=== PATIENT | male | born 1980 | race American Indian/Alaskan Native ===

== ENCOUNTER 2017-04-05 13:33 | Emergency (ER) | payer MEDICAID | END 2017-04-05 13:57 | disposition left against medical advice (07) | LOC: ED 13:33 | DX: R11.2 Nausea with vomiting, unspecified (principal); Z53.21 Procedure and treatment not carried out due to patient leaving prior to being seen by health care provider ==

== ENCOUNTER 2017-04-06 12:41 | Emergency (ER) | payer MEDICAID ==
[2017-04-06 12:54] VITALS: BP 154/113
[2017-04-06 13:37] LABS: Basophils % (Auto) 0.7 % (0.0-1.8); Eosinophils % (Auto) 2.3 % (0.0-4.3); Hematocrit 53.4 % (35.5-45.6); Hemoglobin 17.1 gm/dl (11.8-15.2); Mean Corpuscular HGB Conc 32 % (32-34); Mean Corpuscular Hemoglobin 27 pg (28-32); Mean Corpuscular Volume 85 fl (84-94); Platelet Count 267 K/mm3 (140-440); Red Blood Count 6.25 M/mm3 (3.65-5.03); Red Cell Distribution Width 13.9 % (13.2-15.2); White Blood Count 7.3 K/mm3 (4.5-11.0)
[2017-04-06 13:48] LABS: Anion Gap 22 mmol/L; BUN/Creatinine Ratio 12; Blood Urea Nitrogen 14 mg/dL (9-20); Calcium 9.5 mg/dL (8.4-10.2); Carbon Dioxide 24 mmol/L (22-30); Chloride 94.4 mmol/L (98-107); Glucose 126 mg/dL (75-100); Potassium 3.2 mmol/L (3.6-5.0); Sodium 137 mmol/L (137-145)
== END 2017-04-06 19:41 | disposition left against medical advice (07) ==
LOC: ED 12:41
DX: R11.10 Vomiting, unspecified (principal); Z53.21 Procedure and treatment not carried out due to patient leaving prior to being seen by health care provider
CPT/HCPCS: 36415; 80048; 85025

== ENCOUNTER 2017-05-17 06:54 | Emergency (ER) | payer MEDICAID ==
[2017-05-17 07:33] VITALS: BP 139/101
[2017-05-17 07:55] LABS: Basophils # (Auto) 0.1 K/mm3 (0.0-0.1); Eosinophils # (Auto) 0.2 K/mm3 (0.0-0.4); Hematocrit 47.7 % (35.5-45.6); Hemoglobin 15.8 gm/dl (11.8-15.2); Lymphocytes # (Auto) 2.4 K/mm3 (1.2-5.4); Lymphocytes % (Auto) 32.1 % (13.4-35.0); Mean Corpuscular HGB Conc 33 % (32-34); Mean Corpuscular Hemoglobin 29 pg (28-32); Mean Corpuscular Volume 86 fl (84-94); Monocytes # (Auto) 0.7 K/mm3 (0.0-0.8); Monocytes % (Auto) 9.3 % (0.0-7.3); Platelet Count 253 K/mm3 (140-440); Red Blood Count 5.52 M/mm3 (3.65-5.03); Red Cell Distribution Width 13.6 % (13.2-15.2)
[2017-05-17 08:30] LABS: Bilirubin,Urine NEG (Negative); Color,Urine Yellow (Yellow)
[2017-05-17 08:30] LABS: Alanine Aminotransferase 22 units/L (7-56); Albumin 4.3 g/dL (3.9-5); BUN/Creatinine Ratio 11; Blood Urea Nitrogen 11 mg/dL (9-20); Calcium 9.4 mg/dL (8.4-10.2); Hemolysis Index 14
[2017-05-17 08:31] LABS: Blood,Urine NEG (Negative); Mucus,Urine FEW /HPF; Nitrite,Urine NEG (Negative); Protein,Urine <15 mg/dL mg/dL (Negative); WBC,Urine < 1.0 /HPF (0.0-6.0)
== END 2017-05-17 12:00 | disposition left against medical advice (07) ==
LOC: ED 06:54
DX: Z53.21 Procedure and treatment not carried out due to patient leaving prior to being seen by health care provider (principal)
CPT/HCPCS: 36415; 80053; 81001; 85025

== ENCOUNTER 2017-08-04 19:18 | Emergency (ER) | payer MEDICAID ==
[2017-08-04] MEDS ORDERED: MORPHINE IV ONE ×2 (19:43→22:28)
[2017-08-04] MEDS ORDERED: ZOFRAN IV ONE (19:43)
[2017-08-04] MEDS ORDERED: NACL 0.9% 1000 ML 1,000 ML IV ONE ×3 (19:43→22:28)
[2017-08-04 19:51] LABS: Basophils % (Auto) 0.3 % (0.0-1.8); Eosinophils # (Auto) 0.1 K/mm3 (0.0-0.4); Eosinophils % (Auto) 0.6 % (0.0-4.3); Hematocrit 52.2 % (35.5-45.6); Hemoglobin 17.5 gm/dl (11.8-15.2); Lymphocytes # (Auto) 2.4 K/mm3 (1.2-5.4); Lymphocytes % (Auto) 26.7 % (13.4-35.0); Mean Corpuscular HGB Conc 34 % (32-34); Mean Corpuscular Hemoglobin 28 pg (28-32); Mean Corpuscular Volume 84 fl (84-94); Monocytes # (Auto) 1.1 K/mm3 (0.0-0.8); Monocytes % (Auto) 12.9 % (0.0-7.3); Platelet Count 275 K/mm3 (140-440); Red Blood Count 6.24 M/mm3 (3.65-5.03); Red Cell Distribution Width 13.5 % (13.2-15.2)
--- NOTE | 2017-08-04 19:58 | Emergency Department Report ---
ED Abdominal Pain HPI - General Chief Complaint: Abdominal Pain Stated Complaint: ABD PAIN Time Seen by Provider: 08/04/17 19:34 Source: family Mode of arrival: Stretcher Limitations: Other - History of Present Illness Initial Comments: 36-year-old male with a past medical history of hypertension, anxiety, and gastritis to the hospital complaining of abdominal pain 3-4 days. Pain is in the upper part of the abdomen, constant, stabbing in nature. Pain is moderate to severe in intensity with palpation and no alleviating factors. Coffee- ground emesis reported it without gross hematemesis. Patient had one episode of bright red blood per rectum without persistent hematochezia, melena, fever, or dysuria. Patient denies previous abdominal surgeries. Endoscopy in 2013 did not reveal any ulcers as per patient report - Related Data Home Medications Medication Instructions Recorded Confirmed Last Taken ALBUTEROL Inhaler [ProAir HFA 8.5 gm IH PRN PRN 08/27/15 01/11/16 Unknown Inhaler] Albuterol Sulfate [Albuterol 0.63% 0.63 mg IH PRN PRN 08/27/15 01/11/16 Unknown NEBS] Previous Rx's Medication Instructions Recorded Last Taken Type Ondansetron [Zofran Odt] 4 mg PO Q8H PRN #10 tab.rapdis 01/11/16 Unknown Rx HYDROcodone/APAP 5-325 [[place] 1 each PO Q6HR PRN #15 tablet 08/05/17 Unknown Rx 5-325 mg TAB] Nitrofurantoin [place]/M-Cryst 100 mg PO Q12HR #14 capsule 08/05/17 Unknown Rx [Macrobid CAP] Ondansetron [Zofran Odt] 4 mg PO Q8HR PRN #20 tab.rapdis 08/05/17 Unknown Rx Allergies Allergy/AdvReac Type Severity Reaction Status Date / Time Penicillins Allergy Hives Verified 07/25/14 17:11 tramadol AdvReac Unknown Verified 11/05/14 02:04 ED Review of Systems ROS: Stated complaint: ABD PAIN Other details as noted in HPI Comment: All other systems reviewed and negative ED Past Medical Hx - Past Medical History Previous Medical History?: No Hx Hypertension: (denies) Hx Psychiatric Treatment: Yes (ANXIETY) Hx Asthma: Yes Additional medical history: Gastritis - Surgical History Past Surgical History?: No Additional Surgical History: endoscopy- 2013 - Social History Smoking Status: Never Smoker - Medications Home Medications: Home Medications Medication Instructions Recorded Confirmed Last Taken Type ALBUTEROL Inhaler [ProAir HFA 8.5 gm IH PRN PRN 08/27/15 01/11/16 Unknown History Inhaler] Albuterol Sulfate [Albuterol 0.63% 0.63 mg IH PRN PRN 08/27/15 01/11/16 Unknown History NEBS] Ondansetron [Zofran Odt] 4 mg PO Q8H PRN #10 tab.rapdis 01/11/16 Unknown Rx HYDROcodone/APAP 5-325 [[place] 1 each PO Q6HR PRN #15 tablet 08/05/17 Unknown Rx 5-325 mg TAB] Nitrofurantoin [place]/M-Cryst 100 mg PO Q12HR #14 capsule 08/05/17 Unknown Rx [Macrobid CAP] Ondansetron [Zofran Odt] 4 mg PO Q8HR PRN #20 tab.rapdis 08/05/17 Unknown Rx ED Physical Exam - General Limitations: Other - Other Other exam information: General: No limitations, patient is alert in no acute distress Head exam: Atraumatic, normocephalic Eyes exam: Normal appearance, are clear ENT: Moist mucous membrane, normal oropharynx Neck exam: Normal inspection, full range of motion, no meningismus nontender Respiratory exam: Clear to auscultation bilateral, no wheezes, rales, crackles Cardiovascular: Normal rate and rhythm, normal heart sounds Abdomen: Soft, nondistended, generalized tenderness greatest in the epigastric area. Normal bowel sounds. No rebound or guarding Extremity: Full range of motion normal inspection no deformity Back: Normal Inspection, full range of motion, no tenderness Neurologic: Alert, oriented x3, cranial nerves intact, no motor or sensory deficit Psychiatric: normal affect, normal mood Skin: Warm, dry, intact ED Course Vital Signs 08/04/17 08/04/17 08/04/17 19:29 20:05 22:04 Temperature 99.2 F 99 F Pulse Rate 98 H 88 Respiratory 18 18 18 Rate Blood Pressure 159/92 Blood Pressure 153/77 [Left] O2 Sat by Pulse 100 100 Oximetry 08/05/17 00:42 Temperature 98 F Pulse Rate 88 Respiratory 18 Rate Blood Pressure Blood Pressure 114/72 [Left] O2 Sat by Pulse 100 Oximetry ED Medical Decision Making - Lab Data Result diagrams: 08/04/17 19:41 08/04/17 19:41 Lab Results 08/04/17 08/04/17 08/04/17 Range/Units 19:41 19:41 20:33 WBC 8.8 (4.5-11.0) K/mm3 RBC 6.24 H (3.65-5.03) M/mm3 Hgb 17.5 H (11.8-15.2) gm/dl Hct 52.2 H (35.5-45.6) % MCV 84 (84-94) fl MCH 28 (28-32) pg MCHC 34 (32-34) % RDW 13.5 (13.2-15.2) % Plt Count 275 (140-440) K/mm3 Lymph % (Auto) 26.7 (13.4-35.0) % [place] % (Auto) 12.9 H (0.0-7.3) % Eos % (Auto) 0.6 (0.0-4.3) % Baso % (Auto) 0.3 (0.0-1.8) % Lymph # 2.4 (1.2-5.4) K/mm3 [place] # 1.1 H (0.0-0.8) K/mm3 Eos # 0.1 (0.0-0.4) K/mm3 Baso # 0.0 (0.0-0.1) K/mm3 Seg Neutrophils % 59.5 (40.0-70.0) % Seg Neutrophils # 5.3 (1.8-7.7) K/mm3 Sodium 136 L (137-145) mmol/L Potassium 3.4 L (3.6-5.0) mmol/L Chloride 95.9 L (98-107) mmol/L Carbon Dioxide 20 L (22-30) mmol/L Anion Gap 24 mmol/L BUN 13 (9-20) mg/dL Creatinine 1.4 (0.8-1.5) mg/dL Estimated GFR > 60 ml/min BUN/Creatinine Ratio 9 % Glucose 117 H (75-100) mg/dL Calcium 11.3 H (8.4-10.2) mg/dL Total Bilirubin 0.80 (0.1-1.2) mg/dL AST 15 (5-40) units/L ALT 17 (7-56) units/L Alkaline Phosphatase 87 (35-129) units/L Total Creatine Kinase (55-170) units/L Total Protein 8.3 H (6.3-8.2) g/dL Albumin 4.8 (3.9-5) g/dL Albumin/Globulin Ratio 1.4 % Lipase 17 (13-60) units/L Urine Color Nicol (Yellow) Urine Turbidity Clear (Clear) Urine pH 5.0 (5.0-7.0) Ur Specific [place] 1.034 H (1.003-1.030) Urine Protein 100 mg/dl (Negative) mg/dL Urine Glucose (UA) Neg (Negative) mg/dL Urine Ketones 20 (Negative) mg/dL Urine Blood Neg (Negative) Urine Nitrite Neg (Negative) Urine Bilirubin Neg (Negative) Urine Urobilinogen < 2.0 (<2.0) mg/dL Ur Leukocyte Esterase Tr (Negative) Urine WBC (Auto) 8.0 H (0.0-6.0) /HPF Urine RBC (Auto) 2.0 (0.0-6.0) /HPF Urine Bacteria (Auto) 1+ (Negative) /HPF Calcium Oxalate Crystal 1+ Hyaline Casts 14 /LPF Urine Mucus 3+ /HPF Urine Opiates Screen Urine Methadone Screen Ur Barbiturates Screen Ur Phencyclidine Scrn Ur Amphetamines Screen U Benzodiazepines Scrn Urine Cocaine Screen U Marijuana (THC) Screen Drugs of Abuse Note 08/04/17 08/04/17 Range/Units 20:33 23:35 WBC (4.5-11.0) K/mm3 RBC (3.65-5.03) M/mm3 Hgb (11.8-15.2) gm/dl Hct (35.5-45.6) % MCV (84-94) fl MCH (28-32) pg MCHC (32-34) % RDW (13.2-15.2) % Plt Count (140-440) K/mm3 Lymph % (Auto) (13.4-35.0) % [place] % (Auto) (0.0-7.3) % Eos % (Auto) (0.0-4.3) % Baso % (Auto) (0.0-1.8) % Lymph # (1.2-5.4) K/mm3 [place] # (0.0-0.8) K/mm3 Eos # (0.0-0.4) K/mm3 Baso # (0.0-0.1) K/mm3 Seg Neutrophils % (40.0-70.0) % Seg Neutrophils # (1.8-7.7) K/mm3 Sodium (137-145) mmol/L Potassium (3.6-5.0) mmol/L Chloride (98-107) mmol/L Carbon Dioxide (22-30) mmol/L Anion Gap mmol/L BUN (9-20) mg/dL Creatinine (0.8-1.5) mg/dL Estimated GFR ml/min BUN/Creatinine Ratio % Glucose (75-100) mg/dL Calcium (8.4-10.2) mg/dL Total Bilirubin (0.1-1.2) mg/dL AST (5-40) units/L ALT (7-56) units/L Alkaline Phosphatase (35-129) units/L Total Creatine Kinase 97 (55-170) units/L Total Protein (6.3-8.2) g/dL Albumin (3.9-5) g/dL Albumin/Globulin Ratio % Lipase (13-60) units/L Urine Color (Yellow) Urine Turbidity (Clear) Urine pH (5.0-7.0) Ur Specific [place] (1.003-1.030) Urine Protein (Negative) mg/dL Urine Glucose (UA) (Negative) mg/dL Urine Ketones (Negative) mg/dL Urine Blood (Negative) Urine Nitrite (Negative) Urine Bilirubin (Negative) Urine Urobilinogen (<2.0) mg/dL Ur Leukocyte Esterase (Negative) Urine WBC (Auto) (0.0-6.0) /HPF Urine RBC (Auto) (0.0-6.0) /HPF Urine Bacteria (Auto) (Negative) /HPF Calcium Oxalate Crystal Hyaline Casts /LPF Urine Mucus /HPF Urine Opiates Screen Presumptive negative Urine Methadone Screen Presumptive negative Ur Barbiturates Screen Presumptive negative Ur Phencyclidine Scrn Presumptive negative Ur Amphetamines Screen Presumptive positive U Benzodiazepines Scrn Presumptive negative Urine Cocaine Screen Presumptive positive U Marijuana (THC) Screen Presumptive positive Drugs of Abuse Note Disclamer - Radiology Data Radiology results: report reviewed ct abd pelvis IV contrast IMPRESSION: negative. No acute abnormalities seen - Medical Decision Making Patient confronted about UDS findings. He admits to cocaine and marijuana use. He states he is taking [id number] cold medicine that could explain elevated amphetamine level. No signs of rhabdomyolysis. UDS + for infection. Patient does complain of dysuria when asked and will likely be treated for STD. He states that he has hives when he takes penicillin he can still take it. IM Rocephin ordered with Solu-Medrol IV. Patient had Benadryl 50 mg several hours ago. He will be monitored for allergic reaction after medication. He also received azithromycin and cover for chlamydia and Macrobid for UTI. Patient is feeling better with improved pain and no further vomiting. - Differential Diagnosis gastritis, pancreatitis, gastroenteritis, biliary colic Critical Care Time: No Critical care attestation.: If time is entered above; I have spent that time in minutes in the direct care of this critically ill patient, excluding procedure time. ED Disposition Clinical Impression: Gastroenteritis, Cocaine abuse, UTI (urinary tract infection) Disposition: TO HOME OR SELFCARE Is pt being admited?: No Does the pt Need Aspirin: No Condition: Stable Instructions: Gastroenteritis (ED), Urinary Tract Infection in Men (ED), Nonspecific Urethritis in Men (ED), Cocaine Abuse (ED) Additional Instructions: Take the medication as prescribed. Follow with the primary care clinic or the doctor provided. Return if symptoms worsen. Prescriptions: HYDROcodone/APAP 5-325 [[place] 5-325 mg TAB] 1 each PO Q6HR PRN #15 tablet PRN Reason: Pain Nitrofurantoin [place]/M-Cryst [Macrobid CAP] 100 mg PO Q12HR #14 capsule Ondansetron [Zofran Odt] 4 mg PO Q8HR PRN #20 tab.rapdis PRN Reason: Nausea And Vomiting Referrals: MARTHA FOWLER MD [Primary Care Provider] - 3-5 Days [facility] [Provider Group] - 3-5 Days
[2017-08-04 20:04] LABS: Alanine Aminotransferase 17 units/L (7-56); Albumin 4.8 g/dL (3.9-5); BUN/Creatinine Ratio 9; Blood Urea Nitrogen 13 mg/dL (9-20); Calcium 11.3 mg/dL (8.4-10.2); Hemolysis Index 9; Lipase 17 units/L (13-60)
[2017-08-04 21:22] LABS: Benzodiazepines Screen,Urine PRESUMPTIVE NEGATIVE; Methadone Screen,Urine PRESUMPTIVE NEGATIVE; Opiate Screen,Urine PRESUMPTIVE NEGATIVE
[2017-08-04 21:28] LABS: Bacteria,Urine 1+ /HPF (Negative); Bilirubin,Urine NEG (Negative); Blood,Urine NEG (Negative); Calcium Oxalate Crystals,Urine 1+; Color,Urine Amber (Yellow); Hyaline Casts,Urine 14 /LPF; Mucus,Urine 3+ /HPF; Urobilinogen,Urine < 2.0 mg/dL (<2.0)
[2017-08-04 21:41] LABS: Amphetamine Screen,Urine PRESUMPTIVE POSITIVE; Cannabinoid Screen,Urine PRESUMPTIVE POSITIVE; Cocaine Screen,Urine PRESUMPTIVE POSITIVE
[2017-08-04] MEDS ORDERED: BENADRYL IV ONE (22:29)
[2017-08-04] MEDS ORDERED: REGLAN IV ONE (22:29)
--- NOTE | 2017-08-04 22:53 | Cat Scan Report ---
FINAL REPORT EXAM: CT ABDOMEN PELVIS W CON HISTORY: abd pain, n,v,d TECHNIQUE: CT abdomen and pelvis with intravenous contrast PRIORS: None. FINDINGS: No acute abnormality identified in the lung bases. No focal abnormality identified within the liver parenchyma. The spleen demonstrates normal size and attenuation. No pancreatic abnormalities seen. The kidneys demonstrate symmetric contrast enhancement. No evidence of hydronephrosis. The adrenal glands are unremarkable Abdominal aorta is normal in caliber. No pathologically enlarged lymph nodes are identified. No signs of free fluid or free air No evidence of small bowel dilatation. Colon is nondistended. No pericolonic inflammatory change. The appendix is identified and is unremarkable Urinary bladder is unremarkable. IMPRESSION: negative. No acute abnormalities seen
[2017-08-04] MEDS ORDERED: K-DUR PO ONE (23:37)
[2017-08-05] MEDS ORDERED: MACROBID PO ONE (00:23)
[2017-08-05 00:44] VITALS: BP 114/72
[2017-08-05] MEDS ORDERED: ROCEPHIN 250 MG in NACL 0.9% 50 ML IV ONE (01:29)
[2017-08-05] MEDS ORDERED: ZITHROMAX PO ONE (01:30)
[2017-08-05] MEDS ORDERED: ROCEPHIN IM ONE (01:32)
[2017-08-05] MEDS ORDERED: XYLOCAINE 1% MPF 5 mL INFILTRATI ONE (01:32)
[2017-08-05] MEDS ORDERED: cefTRIAXone 0.25 GM in NACL 0.9% 20 ML IV ONE (01:45)
[2017-08-05] MEDS ORDERED: ZOFRAN ODT PO ONE (02:36)
[2017-08-05] MEDS ORDERED: ZOFRAN ODT ONE (02:37)
== END 2017-08-05 02:47 | disposition home or self-care (01) ==
LOC: ED 19:18
DX: K52.9 Noninfective gastroenteritis and colitis, unspecified (principal); F14.10 Cocaine abuse, uncomplicated; N39.0 Urinary tract infection, site not specified; J45.909 Unspecified asthma, uncomplicated; F41.9 Anxiety disorder, unspecified; Z88.6 Allergy status to analgesic agent; Z88.0 Allergy status to penicillin; Z79.899 Other long term (current) drug therapy
CPT/HCPCS: 36415; 74177; 80053; 80307; 81001; 82550; 83690; 85025; 96361; 96372; 96374; 96375; 96376; 99284; J0696; J1200; J2270; J2405; J2765; J2930; J7030; Q9967; Q0162

== ENCOUNTER 2018-06-06 22:35 | Emergency (ER) | payer MEDICAID ==
[2018-06-07] MEDS ORDERED: MORPHINE IV ONE (00:23)
[2018-06-07] MEDS ORDERED: ZOFRAN IV ONE (00:23)
[2018-06-07 00:34] LABS: Hematocrit 47.1 % (35.5-45.6); Hemoglobin 15.6 gm/dl (11.8-15.2); Mean Corpuscular HGB Conc 33 % (32-34); Mean Corpuscular Volume 88 fl (84-94); Platelet Count 237 K/mm3 (140-440); Red Blood Count 5.39 M/mm3 (3.65-5.03); Red Cell Distribution Width 13.6 % (13.2-15.2)
--- NOTE | 2018-06-07 00:42 | Emergency Department Report ---
ED Abdominal Pain HPI - General Chief Complaint: Abdominal Pain Stated Complaint: ABD PAIN Time Seen by Provider: 06/07/18 00:21 Source: patient Mode of arrival: Stretcher Limitations: No Limitations - History of Present Illness Initial Comments: Patient is a 37-year-old -[place] male with history of renal stones , and bronchitis who presents for abdominal pain radiating to right flank dysuria frequency and urgency there is no fever no chills R there is nausea and vomiting symptoms rated at 5/10 there are no exacerbating or relieving factors MD Complaint: abdominal pain, flank pain Onset/Timin -: days(s) Location: RUQ, LLQ, R flank Radiation: R flank Migration to: R flank Severity: moderate Severity scale (0 -10): 5 Quality: aching Consistency: constant Improves With: nothing Worsens With: eating, movement Associated Symptoms: nausea, vomiting, dysuria - Related Data Home Medications Medication Instructions Recorded Confirmed Last Taken ALBUTEROL Inhaler (OR & NICU) 8.5 gm IH PRN PRN 08/27/15 01/11/16 Unknown [ProAir HFA Inhaler] Albuterol Sulfate [Albuterol 0.63% 0.63 mg IH PRN PRN 08/27/15 01/11/16 Unknown NEBS] Previous Rx's Medication Instructions Recorded Last Taken Type Ondansetron [Zofran Odt] 4 mg PO Q8H PRN #10 tab.rapdis 01/11/16 Unknown Rx HYDROcodone/APAP 5-325 [[place] 1 each PO Q6HR PRN #15 tablet 08/05/17 Unknown Rx 5-325 mg TAB] Nitrofurantoin [place]/M-Cryst 100 mg PO Q12HR #14 capsule 08/05/17 Unknown Rx [Macrobid CAP] Ondansetron [Zofran Odt] 4 mg PO Q8HR PRN #20 tab.rapdis 08/05/17 Unknown Rx Dicyclomine [Bentyl] 10 mg PO QID #15 capsule 10/22/17 Unknown Rx Ondansetron [Zofran Odt] 4 mg PO Q8HR PRN #10 tab.rapdis 10/22/17 Unknown Rx Pantoprazole [Protonix TAB] 20 mg PO DAILY #30 tablet. 10/22/17 Unknown Rx Dicyclomine [Bentyl] 10 mg PO QID PRN #30 capsule 06/07/18 Unknown Rx Naproxen 500 mg PO BID PRN #30 tablet 06/07/18 Unknown Rx Ondansetron [Zofran Odt] 4 mg PO Q8HR PRN #12 tab.rapdis 06/07/18 Unknown Rx Allergies Allergy/AdvReac Type Severity Reaction Status Date / Time Penicillins Allergy Hives Verified 07/25/14 17:11 tramadol AdvReac Unknown Verified 11/05/14 02:04 ED Review of Systems ROS: Stated complaint: ABD PAIN Other details as noted in HPI Constitutional: denies: chills, fever Eyes: denies: eye pain, eye discharge, vision change ENT: denies: ear pain, throat pain Respiratory: denies: cough, shortness of breath, wheezing Cardiovascular: denies: chest pain, palpitations Endocrine: no symptoms reported Gastrointestinal: abdominal pain (ruq ), nausea, vomiting. denies: diarrhea, constipation, hematemesis, melena, hematochezia Genitourinary: urgency, dysuria. denies: hematuria, discharge, testicular pain, testicular mass Musculoskeletal: back pain (right flank pain). denies: joint swelling, arthralgia Skin: denies: rash, lesions Neurological: denies: headache, weakness, paresthesias Psychiatric: denies: anxiety, depression Hematological/Lymphatic: denies: easy bleeding, easy bruising ED Past Medical Hx - Past Medical History Hx Hypertension: (denies) Hx Diabetes: No Hx Psychiatric Treatment: Yes (ANXIETY) Hx Asthma: Yes Hx COPD: No Additional medical history: Gastritis - Surgical History Additional Surgical History: endoscopy- 2013 - Social History Smoking Status: Current Every Day Smoker - Medications Home Medications: Home Medications Medication Instructions Recorded Confirmed Last Taken Type ALBUTEROL Inhaler (OR & NICU) 8.5 gm IH PRN PRN 08/27/15 01/11/16 Unknown History [ProAir HFA Inhaler] Albuterol Sulfate [Albuterol 0.63% 0.63 mg IH PRN PRN 08/27/15 01/11/16 Unknown History NEBS] Ondansetron [Zofran Odt] 4 mg PO Q8H PRN #10 tab.rapdis 01/11/16 Unknown Rx HYDROcodone/APAP 5-325 [[place] 1 each PO Q6HR PRN #15 tablet 08/05/17 Unknown Rx 5-325 mg TAB] Nitrofurantoin [place]/M-Cryst 100 mg PO Q12HR #14 capsule 08/05/17 Unknown Rx [Macrobid CAP] Ondansetron [Zofran Odt] 4 mg PO Q8HR PRN #20 tab.rapdis 08/05/17 Unknown Rx Dicyclomine [Bentyl] 10 mg PO QID #15 capsule 10/22/17 Unknown Rx Ondansetron [Zofran Odt] 4 mg PO Q8HR PRN #10 tab.rapdis 10/22/17 Unknown Rx Pantoprazole [Protonix TAB] 20 mg PO DAILY #30 tablet.dr 10/22/17 Unknown Rx Dicyclomine [Bentyl] 10 mg PO QID PRN #30 capsule 06/07/18 Unknown Rx Naproxen 500 mg PO BID PRN #30 tablet 06/07/18 Unknown Rx Ondansetron [Zofran Odt] 4 mg PO Q8HR PRN #12 tab.rapdis 06/07/18 Unknown Rx ED Physical Exam - General Limitations: No Limitations General appearance: alert, in no apparent distress - Head Head exam: Present: atraumatic, normocephalic - Eye Eye exam: Present: normal appearance, PERRL, EOMI - ENT ENT exam: Present: mucous membranes moist - Neck Neck exam: Present: normal inspection - Respiratory Respiratory exam: Present: normal lung sounds bilaterally. Absent: respiratory distress, wheezes, stridor - Cardiovascular Cardiovascular Exam: Present: regular rate, normal rhythm, normal heart sounds. Absent: systolic murmur, diastolic murmur, rubs, gallop - GI/Abdominal GI/Abdominal exam: Present: soft, tenderness (right flank pain to palpation ), normal bowel sounds. Absent: rebound, bruit, hernia - Rectal Rectal exam: Present: deferred - Extremities Exam Extremities exam: Present: normal inspection - Back Exam Back exam: Present: normal inspection, full ROM, tenderness, CVA tenderness (R). Absent: CVA tenderness (L), muscle spasm - Neurological Exam Neurological exam: Present: alert, oriented X3, CN II-XII intact, normal gait - Psychiatric Psychiatric exam: Present: normal affect, normal mood - Skin Skin exam: Present: warm, dry, intact, normal color. Absent: rash ED Course Vital Signs 06/06/18 06/07/18 06/07/18 22:45 00:38 00:43 Temperature 99.7 F H 98.5 F Pulse Rate 88 72 Respiratory 18 16 16 Rate Blood Pressure 156/100 Blood Pressure 147/97 [Right] O2 Sat by Pulse 96 99 Oximetry ED Medical Decision Making - Lab Data Result diagrams: 06/07/18 00:15 06/07/18 00:15 - Radiology Data Radiology results: report reviewed, image reviewed FINAL REPORT PROCEDURE: XR ABDOMEN 1V AP TECHNIQUE: Abdominal series, including supine and upright AP views. HISTORY: abd pain COMPARISON: No prior studies are available for comparison. FINDINGS: Bowel gas pattern:Nonobstructive . Masses or calcifications:None . Bony structures:No significant abnormality . Pneumoperitoneum:None . Other:No significant findings . IMPRESSION: No acute abnormality. Transcribed By: CO Dictated By: HILARIO MCGOWAN MD Electronically Authenticated By: HILARIO MCGOWAN MD Signed Date/Time: 06/07/18228 DD/ 6 TD/TT: 06/07/18226 - Medical Decision Making KUB normal nonobstructive gas pattern is, labs normal cbc, cmp, ua, plan, bentyl zofran, naproxen, pt will follow up with [facility] in 2-3 days and or return to emergency department if symptoms worsen. Critical care attestation.: If time is entered above; I have spent that time in minutes in the direct care of this critically ill patient, excluding procedure time. ED Disposition Clinical Impression: Abdominal pain Qualifiers: Abdominal location: right upper quadrant Qualified Code(s): R10.11 - Right upper quadrant pain Disposition: -01 TO HOME OR SELFCARE Is pt being admited?: No Does the pt Need Aspirin: No Condition: Stable Instructions: Abdominal Pain (ED), Flank Pain (ED) Prescriptions: Dicyclomine [Bentyl] 10 mg PO QID PRN #30 capsule PRN Reason: abd spasm Naproxen 500 mg PO BID PRN #30 tablet PRN Reason: pain Ondansetron [Zofran Odt] 4 mg PO Q8HR PRN #12 tab.rapdis PRN Reason: nausea and vomiting Referrals: [facility] [Outside] - 3-5 Days Forms: Work/School Release Form(ED) Time of Disposition: 02:59
[2018-06-07 00:49] LABS: Alanine Aminotransferase 22 units/L (7-56); Albumin 4.4 g/dL (3.9-5); BUN/Creatinine Ratio 9; Blood Urea Nitrogen 10 mg/dL (9-20); Calcium 9.6 mg/dL (8.4-10.2); Hemolysis Index 16
[2018-06-07 01:02] VITALS: BP 156/100
[2018-06-07 01:05] LABS: Bilirubin,Urine NEG (Negative); Blood,Urine NEG (Negative); Color,Urine Yellow (Yellow); Mucus,Urine 2+ /HPF; Protein,Urine <15 mg/dL mg/dL (Negative)
--- NOTE | 2018-06-07 02:29 | XRay Report ---
FINAL REPORT PROCEDURE: XR ABDOMEN 1V AP TECHNIQUE: Abdominal series, including supine and upright AP views. HISTORY: abd pain COMPARISON: No prior studies are available for comparison. FINDINGS: Bowel gas pattern:Nonobstructive . Masses or calcifications:None . Bony structures:No significant abnormality . Pneumoperitoneum:None . Other:No significant findings . IMPRESSION: No acute abnormality.
== END 2018-06-07 03:20 | disposition home or self-care (01) ==
LOC: ED 22:35
DX: R10.11 Right upper quadrant pain (principal); J45.909 Unspecified asthma, uncomplicated; F17.200 Nicotine dependence, unspecified, uncomplicated; Z88.0 Allergy status to penicillin; Z88.6 Allergy status to analgesic agent
CPT/HCPCS: 36415; 74018; 80053; 81001; 82550; 83690; 83735; 85027; 96374; 96375; 99284; J2270; J2405